=== PATIENT | male | born 1970 | race Caucasian/White ===

== ENCOUNTER 2024-12-23 19:40 | Emergency (ER) | payer SELFPAY ==
[2024-12-23 19:42] VITALS: BP 144/88
[2024-12-23 19:59] VITALS: BMI 27.8
--- NOTE | 2024-12-23 20:01 | ED.GENMED ---
History of Present Illness
General
Chief Complaint: Crisis Evaluation
Source: patient
Exam Limitations: none
Time Seen by Provider: 12/23/24 19:47
Nursing documentation reviewed up to this point in time: agreed with
History of Present Illness
History of Present Illness:
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
in his alcohol
Past History
Past History
ED Past Medical History: Psychiatric
ED Past Surgical History: None
Social History
Tobacco: Smoker
Alcohol: Former
Drug: None
Personal: Single
Living: other (Sober living)
Employment: Employed
Review of Systems
Review of Systems
All Other Systems: Not applicable
Psychiatric: Reports depression and suicidal; Denies anxiety
Phy Exam
Physical Exam
Physical Exam:
Physical Exam
General: no apparent distress, not acutely ill
Neck: No jaundice
Heart: s1/s2 regular rate and rhythm, no murmur. equal radial pulses.
Lungs: no acute respiratory distress.
Neuro: alert and oriented. no focal neurological deficits
Skin: no rash
Psychiatric: Depressed not hallucinating not actively homicidal or suicidal
Extremities: no edema.
Course
Orders/Labs/Results
Orders:
Orders
12/23/24 19:46
Crisis Consult Urgent
Reason for Consult: +SI
Vital Signs
Initial and Last Documented VS:
Initial Vital Signs
Temp Pulse Resp BP Pulse Ox
98.6 F 85 16 144/88 97
12/23/24 19:42 12/23/24 19:42 12/23/24 19:42 12/23/24 19:42 12/23/24 19:42
Last Documented Vital Signs
Temp Pulse Resp BP Pulse Ox
98.6 F 85 16 144/88 97
12/23/24 19:42 12/23/24 19:42 12/23/24 19:42 12/23/24 19:42 12/23/24 20:02
MDM/Problems Addressed
Differential Diagnosis Includes:
Suicidal ideation, depression anxiety
MDM/Problems Addressed:
Suicide ideation without plan
Chronic conditions affecting care: Psychiatric illness
Acute Exacerbation and/or Progression of Chronic Illness: Psychiatric illness
*Pulse Oximetry
SaO2: 97
Oxygen Mode of Delivery: Room air
Patient hypoxic: no
*Critical Care Note
Total Time (30-74mins, 75-104mins- exclusive of procedures): Not Applicable
Update Note
Update Note:
dw crisis
IOP will be set up
ED Attending Note
-
Portions of this chart may have been created with voice recognition software.� Occasional wrong word or��sound alike� substitutions may have occurred due to the inherent limitations of voice recognition software.
Discharge Plan
Departure
Patient Disposition: Home (Routine Discharge)
Date of Disposition: 12/23/24
Time of Disposition: 21:45
Patient with high blood pressure during this ER visit?: No
Condition: Good
Discharge Problem:
Depression
Instructions: Anxiety, Adult (DC), Depression, Adult (DC)
Prescriptions:
No Action
No Current Medications
0
Interventions
Interventions:
*Risk Screen - Suicide Last Done: 12/23/24 19:42
*General Assessment Last Done: 12/23/24 19:42
*Neglect/Abuse Screening Last Done: 12/23/24 19:42
*ED- Fall Risk Assessment Last Done: 12/23/24 19:59
*ED COVID-19 Vaccine History Last Done: 12/23/24 19:59
ED-Psychological Assessment Last Done: 12/23/24 19:59
Discharge Date and Time
Print Language: BENGALI
== END 2024-12-23 21:59 | disposition home or self-care (01) ==
LOC: EMR 19:40
PROVIDERS: EMERGENCY PHYSICIAN Emergency Medicine
DX: R45.851 Suicidal ideations (principal); F32.A Depression, unspecified; F17.200 Nicotine dependence, unspecified, uncomplicated
CPT/HCPCS: 99285